=== PATIENT | male | born 1950 | race Caucasian/White ===

== ENCOUNTER → 2017-10-20 | Outpatient (CLI) | payer MEDICARE, BC ==
[~2017-10-20] MED LIST: COZAAR100 MG PO; PRILOSEC 20MG20 MG PO; ZOCOR 20MG20 MG PO
== END ==
LOC: COL.RAD 08:15
DX: I71.4 Abdominal aortic aneurysm, without rupture (principal); Z87.891 Personal history of nicotine dependence